=== PATIENT | male | born 1955 | race Asian ===

== ENCOUNTER 2016-08-12 17:23 | Inpatient (IN) | payer OTHER ==
--- NOTE | 2016-08-12 18:32 | PDOC ---
History of Present Illness - General Chief Complaint: Rash Stated Complaint: EAR PROBLEM/ R/O SHINGLES Time Seen by Provider: 08/12/16 18:30 History Source: Patient Exam Limitations: No Limitations - History of Present Illness Initial Comments: 08/12/16 22:43 61-year-old male with history of hypercholesterolemia presents to the ER with worsening right-sided facial rash that began around the right ear and now has extended to the right infraorbital area. Rash is associated with pruritus and pain, was initially vesicular and has now become encrusted. Patient also complaining of right radicular pain and decreased hearing. Patient denies headache/fever/chills. Patient was seen by his primary care physician and prescribed Valtrex which the patient has been taking. Patient was referred to the ER further evaluation and treatment. REVIEW OF SYSTEMS CONSTITUTIONAL: No fever, no chills, no fatigue EYES: No visual changes ENT: r ear ear pain, no sore throat CARDIOVASCULAR: No chest pain, no palpitations RESPIRATORY: No cough, no SOB GI: No abdominal pain, no nausea, no vomiting, no constipation, no diarrhea GENITOURINARY: No dysuria, no frequency, no hematuria MUSKULOSKELETAL: No backpain, no joint pain, no myalgias SKIN: r facial rash NEURO: No headache EXAMINATION CONSTITUTIONAL: Well-appearing; well-nourished; in no apparent distress HEAD: Normocephalic; atraumatic EYES: PERRL; EOM intact ENMT: + Numerous excoriated lesions to the V1 distribution on the right side extending from the preauricular area to the right infraorbital area with several small vesicles. There is no ocular involvement and there are no dendritic lesions to the right cornea. Visual acuity is intact.; normal oropharynx NECK: Supple; non-tender; no cervical lymphadenopathy CARD: Normal S1, S2; no murmurs, rubs, or gallops RESP: Normal chest excursion with respiration; breath sounds clear and equal bilaterally; no wheezes, rhonchi, or rales ABD: Soft, non-distended; non-tender; no palpable organomegaly, no palpable hernias EXT: Normal ROM in all four extremities; non-tender to palpation; distal pulses intact SKIN: Warm, dry, no rash NEURO: No focal neurological deficiencies. Past History - Past Medical History Allergies/Adverse Reactions: Allergies Allergy/AdvReac Type Severity Reaction Status Date / Time Penicillins Allergy Verified 08/12/16 17:28 shrimp Allergy Uncoded 08/12/16 17:28 Home Medications: Ambulatory Orders Lisinopril [Prinivil -] 40 mg PO DAILY 02/13/14 Naproxen [Naprosyn] 500 mg PO BID PRN #20 tablet 02/13/14 Simvastatin [Zocor -] 5 mg PO HS 02/13/14 Tamsulosin HCl 0.4 mg PO DAILY #7 cap.er.24h 02/13/14 HTN: Yes - Surgical History Neurologic Surgery: Yes (back) - Psycho/Social/Smoking Cessation Hx Anxiety: No Suicidal Ideation: No Smoking History: Never smoked Have you smoked in the past 12 months: Yes Number of Cigarettes Smoked Daily: 1 Cigars Per Day: 0 Information on smoking cessation initiated: No Hx Alcohol Use: No Drug/Substance Use Hx: No Substance Use Type: None *Physical Exam - Vital Signs Last Vital Signs Temp Pulse Resp BP Pulse Ox 98.1 F 75 17 145/84 100 08/12/16 17:26 08/12/16 17:26 08/12/16 17:26 08/12/16 17:26 08/12/16 17:26 ED Treatment Course - LABORATORY CBC & Chemistry Diagram: 08/12/16 20:20 08/12/16 20:20 Medical Decision Making - Medical Decision Making 08/12/16 22:45 Patient is a 61-year-old male with history of hyperlipidemia who presents to the ER with worsening herpes zoster infection in the right C1 distribution that is increasing despite the Valtrex therapy. Patient has most likely superimposed impetigo. Will administer IV acyclovir and will cover for gram-positive cellulitis. Will admit. *DC/Admit/Observation/Transfer Diagnosis at time of Disposition: Herpes zoster Qualifiers: Herpes zoster complications: unspecified herpes zoster complication Qualified Code(s): B02.8 - Zoster with other complications - Discharge Dispostion Admit: Yes - Referrals Referrals: Tobin Wild MD [Primary Care Provider] -
[2016-08-12] MEDS ORDERED: VANCOMYCIN 1,250 MG in DEXTROSE 5%-WATER - 250 ML IVPB ONE ×2 (18:36→20:00)
[2016-08-12] MEDS ORDERED: ACYCLOVIR INJECTION 900 MG in DEXTROSE 5%-WATER - 100 ML IVPB ONE (18:37)
[2016-08-12 20:26] LABS: EOSINOPHIL 4.1 % (0-4.5); MCH 30.5 pg (25.7-33.7); MCHC 34.5 g/dl (32.0-35.9); MEAN CELL VOLUME 88.3 fl (80-96); MEAN PLT VOLUME 8.7 fl (7.5-11.1); NEUTROPHILS 49.1 % (42.8-82.8); PLATELET COUNT 168 K/MM3 (134-434); RDW 13.9 % (11.9-15.9); WHITE BLOOD COUNT 6.2 K/mm3 (4.0-10.0)
[2016-08-12 21:02] LABS: ANION GAP 8 (8-16); BILIRUBIN,TOTAL 0.6 mg/dL (0.2-1.0); CALCIUM 8.8 mg/dL (8.5-10.1); CO2 28 mmol/L (21-32); CREATININE 0.8 mg/dL (0.7-1.3); GLUCOSE,RANDOM 134 mg/dL (74-106); SGOT/AST 29 U/L (15-37); SGPT/ALT 48 U/L (12-78); TOT PROT 6.6 g/dl (6.4-8.2)
[2016-08-12 21:03] LABS: ALK PHOS 65 U/L (45-117)
[2016-08-12] MEDS ORDERED: NAPROXEN 500 MG TABLET (FP) PO PRN (22:15)
[2016-08-12] MEDS ORDERED: OXYCODONE/APAP 5/325MG COMBO TABLET PO PRN (22:16)
[2016-08-12] MEDS ORDERED: oxyCODONE HCL 5 MG TABLET PO PRN (22:26)
[2016-08-12] MEDS ORDERED: ACETAMINOPHEN 325 MG TABLET (FP) PO PRN (22:26)
[2016-08-12] MEDS ORDERED: NAPROXEN 500 MG TABLET (FP) ONE (23:42)
[2016-08-13] MEDS: ACYCLOVIR INJECTION 900 MG in DEXTROSE 5%-WATER - 250 ML IVPB SCH ×3 (03:50→18:23)
[2016-08-13 09:48] VITALS: BMI 27.9
[2016-08-13] MEDS: LISINOPRIL 20 MG TABLET (FP) PO SCH (10:16)
[2016-08-13] MEDS: HEPARIN NA (PORCINE) 5,000 UNITS/ML 1ML VIAL SQ SCH ×2 (10:16→21:05)
[2016-08-13] MEDS: TAMSULOSIN HCL 0.4 MG CAP.ER.24H (FP) PO SCH (10:17)
--- NOTE | 2016-08-13 12:16 | PN ---
Progress Note (short form) - Note Progress Note: ID Consult dictated Probable resolving Herpes Zoster V3 distribution Possible bacterial secondary infection Obtain viral c/s Dermatology consult IV ACV / cefazolin If stable, D/C home am on Valtrex 1gm po tid x7d + keflex 500mg po bid x7d
[2016-08-13] MEDS: CEFAZOLIN (PRE-DOCKED) 50 ML IVPB SCH ×2 (12:49→17:52)
--- NOTE | 2016-08-13 13:49 | CONS ---
DATE OF CONSULTATION: HISTORY: The patient is a 61-year-old male evaluated for suspected herpes zoster. The patient reports that approximately 1 week ago he had developed a rash in the right preauricular area. It was initially described as vesicular in nature. He was seen as an outpatient and was prescribed a topical steroid cream as well as Valtrex. Despite taking 5 days of Valtrex, he reports there was no clinical improvement. He complained of pruritus at the site but no pain. A vesicular lesion subsequently became more encrusted. He denies any associated fever or chills. He has had no hearing deficit or change in his visual acuity. The patient was born in [place]. He is unsure whether or not he had varicella as a child. PAST MEDICAL HISTORY: Positive for hyperlipidemia, nephrolithiasis. PAST SURGICAL HISTORY: Status post back surgery. ALLERGIES: PENICILLIN. The nature of this allergy not known. MEDICATIONS: Prinivil, Naproxen, Zocor, Flomax. SOCIAL HISTORY: Originally from [place]. Has been living in the [place] for the past 30 years. Denies any ill contacts. SYSTEMS REVIEW: Neurologic: No loss of consciousness, seizure activity, focal weakness. Cardiac: Negative chest pain or palpitations. Respiratory: Negative for cough or sputum production. Gastrointestinal: Negative vomiting or diarrhea. Genitourinary: Negative for urinary tract infection. LABORATORY DATA: White count 6.2, hematocrit 36.1, platelet count 168, BUN 17, creatinine 0.8. Liver enzymes normal. PHYSICAL EXAMINATION: General: He is awake and alert. He is not acutely toxic appearing. Vital Signs: Temperature 97.7, blood pressure 141/89, pulse 64 and regular, respirations 18 per minute. HEENT: Sclerae anicteric. Examination of the face, there is what appears to be crusted, vesicular rash present in the right preauricular area. There is slight swelling and erythema extending to the right infraorbital area. There is no involvement of the ear canal. No vesicular lesions are noted in the external auditory canal or on the tip of the nose. There is no evidence of conjunctivitis. His visual acuity is intact. Extraocular muscles are intact. Neck: Supple with no palpable nodes. Heart: Sounds S1, S2. Lungs: Clear. Abdomen: Soft and nontender. Extremities: Negative for edema. IMPRESSION: 1. Probable resolving herpes zoster V3 distribution. 2. Possible bacterial secondary infection. We will obtain viral culture. Dermatology consultation. IV acyclovir and cefazolin. If stable, may discontinue home in a.m. on Valtrex 1 g p.o. t.i.d. for an additional 7 days as well as Keflex 500 mg b.i.d. for an additional 7 days. Thank you for the kind referral. BRENDA DA SILVA M.D. [id number]
--- NOTE | 2016-08-13 14:51 | HP ---
Admitting History and Physical - Primary Care Physician PCP: Tobin Wild - Admission Chief Complaint: right temporal rash History of Present Illness: 61-year-old male with history of hypercholesterolemia presents to the ER with worsening right-sided facial rash that began around the right ear 1 week ago and now has extended to the right infraorbital area. Rash is associated with pruritus and pain, was initially vesicular and has now become encrusted. Patient also complaining of right radicular pain and decreased hearing. Patient denies headache/fever/chills. Patient was seen by his primary care physician and prescribed Valtrex 500 mg po TID which the patient has been taking, to which rash has shown mild improvement. History Source: Patient - Past Medical History Cardiovascular: Yes: HTN, Hyperlipdemia Renal/: Yes: BPH - Smoking History Smoking history: Current some day smoker Have you smoked in the past 12 months: Yes Aproximately how many cigarettes per day: 1 - Alcohol/Substance Use Hx Alcohol Use: No Home Medications - Allergies Allergies/Adverse Reactions: Allergies Allergy/AdvReac Type Severity Reaction Status Date / Time Penicillins Allergy Verified 08/12/16 17:28 shrimp Allergy Uncoded 08/12/16 17:28 - Home Medications Home Medications: Ambulatory Orders Lisinopril [Prinivil -] 40 mg PO DAILY 02/13/14 Naproxen [Naprosyn] 500 mg PO BID PRN #20 tablet 02/13/14 Simvastatin [Zocor -] 5 mg PO HS 02/13/14 Tamsulosin HCl 0.4 mg PO DAILY #7 cap.er.24h 02/13/14 Review of Systems - Review of Systems Constitutional: reports: No Symptoms Eyes: reports: No Symptoms HENT: reports: Ear Pain Neck: reports: No Symptoms Cardiovascular: reports: No Symptoms Respiratory: reports: No Symptoms Gastrointestinal: reports: No Symptoms Genitourinary: reports: No Symptoms Breasts: reports: No Symptoms Reported Musculoskeletal: reports: No Symptoms Integumentary: reports: Pruritis, Rash (right temporal region) Neurological: reports: No Symptoms Endocrine: reports: No Symptoms Hematology/Lymphatic: reports: No Symptoms Psychiatric: reports: No Symptoms Pain Intensity: 2 Physical Examination Vital Signs: Vital Signs Temperature 97.7 F 08/13/16 09:13 Pulse Rate 64 08/13/16 09:13 Respiratory Rate 18 08/13/16 10:56 Blood Pressure 141/89 08/13/16 09:13 O2 Sat by Pulse Oximetry (%) 98 08/13/16 10:50 Constitutional: Yes: Well Nourished, No Distress, Calm Cardiovascular: Yes: Regular Rate and Rhythm Respiratory: Yes: Regular Gastrointestinal: Yes: Normal Bowel Sounds Musculoskeletal: Yes: WNL Extremities: Yes: WNL Edema: No Peripheral Pulses WNL: Yes Integumentary: Yes: Rash (encrusted- right temporal region) Neurological: Yes: Alert, Oriented Psychiatric: Yes: Alert, Oriented Problem List - Problems (1) Herpes zoster Assessment/Plan: -viral culture to be done -IV acyclovir q8 -iv abx in case of impetigo -ID consult -Pain management Code(s): B02.9 - ZOSTER WITHOUT COMPLICATIONS Qualifiers: Herpes zoster complications: unspecified herpes zoster complication Qualified Code(s): B02.8 - Zoster with other complications Assessment/Plan -viral culture to be done -IV acyclovir q8 -iv abx in case of impetigo -ID consult -Pain management -Dermatology consult
--- NOTE | 2016-08-13 17:09 | EKG ---
Test Reason : Blood Pressure : / mmHG Vent. Rate : 062 BPM Atrial Rate : 062 BPM P-R Int : 166 ms QRS Dur : 092 ms QT Int : 410 ms P-R-T Axes : -04 038 021 degrees QTc Int : 416 ms NORMAL SINUS RHYTHM EARLY REPOLARIZATION NORMAL ECG WHEN COMPARED WITH ECG OF 13-FEB-2014 11:25, NO SIGNIFICANT CHANGE WAS FOUND Confirmed by MD FELICITAS, ALEKSANDR ([id number]) on 08/13/2016 5:08:51 PM Referred By: Confirmed By:ALEKSANDR POLK MD
[2016-08-13] MEDS ORDERED: PATIENT'S OWN MEDICATION (NON-FORMULARY) (Simvastatin 5 MG) PO SCH (22:00)
[2016-08-14] MEDS: CEFAZOLIN (PRE-DOCKED) 50 ML IVPB SCH ×2 (01:03→09:55)
[2016-08-14] MEDS: ACYCLOVIR INJECTION 900 MG in DEXTROSE 5%-WATER - 250 ML IVPB SCH ×2 (01:41→11:27)
[2016-08-14] MEDS ORDERED: diphenhydrAMINE HCL 25 MG CAPSULE (FP) PO ONE (02:13)
[2016-08-14] MEDS: TAMSULOSIN HCL 0.4 MG CAP.ER.24H (FP) PO SCH (09:16)
[2016-08-14] MEDS: HEPARIN NA (PORCINE) 5,000 UNITS/ML 1ML VIAL SQ SCH (09:55)
[2016-08-14] MEDS: LISINOPRIL 20 MG TABLET (FP) PO SCH (09:55)
[2016-08-14 09:59] VITALS: BP 128/83; PULSE 71; TEMP 98.2
[2016-08-14] MEDS ORDERED: HYDROCORTISONE 2.5% LOTION - 1 BOTTLE TP PRN (10:13)
--- NOTE | 2016-08-14 10:13 | DS ---
Physical Examination Vital Signs: Vital Signs Temperature 98.2 F 08/14/16 09:58 Pulse Rate 71 08/14/16 09:58 Respiratory Rate 18 08/14/16 09:58 Blood Pressure 128/83 08/14/16 09:58 O2 Sat by Pulse Oximetry (%) 97 08/13/16 19:45 Cardiovascular: Yes: Regular Rate and Rhythm Respiratory: Yes: Regular, CTA Bilaterally Integumentary: Yes: Other (dry blisters erythema of rt temperol area) Discharge Summary Reason For Visit: HERPES ZOSTER Current Active Problems Herpes zoster (Acute) Hospital Course: 61-year-old male with history of hypercholesterolemia presents to the ER with worsening right-sided facial rash that began around the right ear 1 week ago and now has extended to the right infraorbital area. Rash is associated with pruritus and pain, was initially vesicular and has now become encrusted. Patient also complaining of right radicular pain and decreased hearing. Patient denies headache/fever/chills. Patient was seen by his primary care physician and prescribed Valtrex 500 mg po TID which the patient has been taking, to which rash has shown mild improvement. History Source: Patient - Past Medical History Cardiovascular: Yes: HTN, Hyperlipdemia Renal/: Yes: BPH - Problems (1) Herpes zoster Assessment/Plan: -viral culture to be done -IV acyclovir q8--to po vltrex -iv abx in case of impetigo--to keflex -ID consult noted Code(s): B02.9 - ZOSTER WITHOUT COMPLICATIONS Qualifiers: Herpes zoster complications: unspecified herpes zoster complication Qualified Code(s): B02.8 - Zoster with other complications Condition: Improved - Instructions Referrals: Tobin Wild MD [Primary Care Provider] - 1 Week Disposition: HOME - Home Medications Comprehensive Discharge Medication List: Ambulatory Orders Lisinopril [Prinivil -] 40 mg PO DAILY 02/13/14 Naproxen [Naprosyn -] 500 mg PO BID PRN #20 tablet 02/13/14 Simvastatin [Zocor -] 5 mg PO HS 02/13/14 Tamsulosin HCl 0.4 mg PO DAILY #7 cap.er.24h 02/13/14 Cephalexin Monohydrate [Keflex -] 500 mg PO BID #14 capsule 08/14/16 Hydrocortisone 2.5% Lotion [Hytone 2.5% Lotion -] 1 applic TP BID #1 bottle 03/02 Valacyclovir HCl [Valtrex -] 1,000 mg PO TID #21 tablet 08/14/16
== END 2016-08-14 13:39 | disposition home or self-care (01) | DRG 723 ==
LOC: JERFT 17:23 → JER 17:23 → JERBED 22:42 → UNDOADMIN 23:13 → J7W 08-13 09:10
PROVIDERS: ADMIT Family Medicine; ATTEND Family Medicine
DX: B02.8 Zoster with other complications (principal); I10 Essential (primary) hypertension; E78.5 Hyperlipidemia, unspecified; N40.0 Benign prostatic hyperplasia without lower urinary tract symptoms; Z72.0 Tobacco use
CPT/HCPCS: 36415; 71020-TC; 80053; 85025; 87252; 93005; 93010; 99283-25; J1644

== ENCOUNTER 2017-02-20 22:13 | Observation (INO) | payer OTHER ==
[2017-02-20] MEDS ORDERED: morphine CARPU-JECT 4 MG/1 ML DISP.SYRIN IVPUSH ONE ×2 (22:28→23:27)
[2017-02-20] MEDS ORDERED: SODIUM CHLORIDE 1,000 ML IV STA (22:28)
--- NOTE | 2017-02-20 22:28 | PDOC ---
Attending Attestation - Resident Resident Name: Deandre Santiago - ED Attending Attestation I have performed the following: I have examined & evaluated the patient, The case was reviewed & discussed with the resident, I agree w/resident's findings & plan, Exceptions are as noted - HPI HPI: 02/21/17 00:22 61 yo male dev left abd pain at 8pm - Physicial Exam PE: 02/21/17 00:22 wnwd 61 yo male p/w left sided abd pain headncat neck supple cvs [id number] Abdomen soft, no guarding, left upper and left mid abdominal pain to palpation. Extremities full range of motion, no deformity. Skin warm and dry. Neuro alert and oriented 3 - Medical Decision Making 02/21/17 00:33 ct scan revealed 7 mm stone and hydronephrosis
[2017-02-20] MEDS ORDERED: KETOROLAC TROMETHAMINE 30 MG/1 ML VIAL IVPUSH ONE (22:29)
[2017-02-20] MEDS ORDERED: ONDANSETRON 4 MG/2 ML VIAL ONE (22:31)
[2017-02-20] MEDS ORDERED: morphine CARPU-JECT 10 MG/1 ML DISP.SYRIN ONE ×2 (22:31→23:31)
[2017-02-20] MEDS ORDERED: KETOROLAC TROMETHAMINE 30 MG/1 ML VIAL ONE (22:31)
[2017-02-20] MEDS ORDERED: ONDANSETRON 4 MG/2 ML VIAL IVPUSH ONE (22:38)
--- NOTE | 2017-02-20 22:57 | PDOC ---
History of Present Illness - General Chief Complaint: Pain, Acute Stated Complaint: ABDOMINAL PAIN Time Seen by Provider: 02/20/17 22:17 History Source: Patient Exam Limitations: No Limitations - History of Present Illness Initial Comments: 02/20/17 22:51 Patient is a 61M with history of kidney stones, HTN and HLD is here today via EMS with sudden onset left sided abdominal pain. He states that he was on the couch with his kids when is paid suddenly onset. He describes the pain as similar to his prior episode of kidney stones 3 years ago. He endorses associated nausea with one episode of vomiting. He denies dysuria and blood in urine. Last bowel movement was today. Denies history of abdominal surgery. Past History - Past Medical History Allergies/Adverse Reactions: Allergies Allergy/AdvReac Type Severity Reaction Status Date / Time Penicillins Allergy Verified 02/20/17 22:16 shrimp Allergy Uncoded 02/20/17 22:16 Home Medications: Ambulatory Orders Lisinopril [Prinivil -] 40 mg PO DAILY 02/13/14 Naproxen [Naprosyn -] 500 mg PO BID PRN #20 tablet 02/13/14 Simvastatin [Zocor -] 5 mg PO HS 02/13/14 Tamsulosin HCl 0.4 mg PO DAILY #7 cap.er.24h 02/13/14 Cephalexin Monohydrate [Keflex -] 500 mg PO BID #14 capsule 08/14/16 Hydrocortisone 2.5% Lotion [Hytone 2.5% Lotion -] 1 applic TP BID #1 bottle 03/02 Valacyclovir HCl [Valtrex -] 1,000 mg PO TID #21 tablet 08/14/16 Anemia: No Asthma: No Cancer: No Cardiac Disorders: No CVA: No COPD: No CHF: No Dementia: No Diabetes: No GI Disorders: No Disorders: No HTN: Yes Hypercholesterolemia: No Liver Disease: No Seizures: No Thyroid Disease: No - Surgical History Abdominal Surgery: No Appendectomy: No Cardiac Surgery: No Cholecystectomy: No Lung Surgery: No Neurologic Surgery: Yes (back) Orthopedic Surgery: No - Suicide/Smoking/Psychosocial Hx Smoking History: Never smoked Have you smoked in the past 12 months: No Number of Cigarettes Smoked Daily: 1 Cigars Per Day: 0 Information on smoking cessation initiated: No 'Breaking Loose' booklet given: 08/13/16 Hx Alcohol Use: No Drug/Substance Use Hx: No Substance Use Type: None Hx Substance Use Treatment: No Review of Systems - Review of Systems Comments:: 02/20/17 22:56 GENERAL/CONSTITUTIONAL: No fever or chills. No weakness. HEAD, EYES, EARS, NOSE AND THROAT: No change in vision. No sore throat. CARDIOVASCULAR: No chest pain or shortness of breath RESPIRATORY: No cough, wheezing, or hemoptysis. GASTROINTESTINAL: Positive for nausea and vomiting. Negative for diarrhea or constipation. GENITOURINARY: No dysuria, frequency, or change in urination. MUSCULOSKELETAL: No joint or muscle swelling or pain. No neck or back pain. SKIN: No rash NEUROLOGIC: No headache, vertigo, loss of consciousness, or change in strength/ sensation. ALLERGIC/IMMUNOLOGIC: No hives or skin allergy. *Physical Exam - Vital Signs Last Vital Signs Temp Pulse Resp BP Pulse Ox 97.0 F L 79 20 161/93 99 02/20/17 22:17 02/20/17 22:17 02/20/17 22:17 02/20/17 22:17 02/20/17 22:17 - Physical Exam Comments: 02/20/17 22:57 GENERAL: Awake, alert, and fully oriented, writhing in pain HEAD: No signs of trauma, normocephalic, atraumatic EYES: PERRLA, EOMI, sclera anicteric, conjunctiva clear ENT: Auricles normal inspection, hearing grossly normal, nares patent, oropharynx clear without exudates. Moist mucosa NECK: Normal ROM, supple, no lymphadenopathy, JVD, or masses LUNGS: No distress, speaks full sentences, clear to auscultation bilaterally HEART: Regular rate and rhythm, normal S1 and S2, no murmurs, rubs or gallops, peripheral pulses normal and equal bilaterally. ABDOMEN: Soft, nontender, pain not worsened with palpation, no cva tenderness, normoactive bowel sounds. No guarding, no rebound. No masses EXTREMITIES: Normal inspection, Normal range of motion, no edema. No clubbing or cyanosis. NEUROLOGICAL: Cranial nerves II through XII grossly intact. Normal speech, no focal sensorimotor deficits SKIN: Warm, Dry, normal turgor, no rashes or lesions noted. ED Treatment Course - LABORATORY CBC & Chemistry Diagram: 02/20/17 22:47 02/20/17 22:47 - RADIOLOGY Radiology Studies Ordered: Category Date Time Status SPIRAL- RENAL-STONE CT [CT] Stat CT Scan 02/20/17 22:29 Ordered - Medications Given in the ED: ED Medications Discontinued Medications Generic Name Dose Route Start Last Admin Trade Name Cj PRN Reason Stop Dose Admin Ketorolac Tromethamine 30 mg 02/20/17 22:29 02/20/17 22:39 Toradol Injection - IVPUSH 02/20/17 22:30 30 mg ONCE ONE Administration Morphine Sulfate 4 mg 02/20/17 22:28 02/20/17 22:39 Morphine Injection - IVPUSH 02/20/17 22:29 4 mg ONCE ONE Administration Ondansetron HCl 4 mg 02/20/17 22:38 02/20/17 22:39 Zofran Injection IVPUSH 02/20/17 22:39 4 mg ONCE ONE Administration Medical Decision Making - Medical Decision Making 02/20/17 22:58 61M with history of htn, hld and kidney stones here today with abdominal pain. Vital signs stable and normal. DDx is heavily weighted towards kidney stones, but ddx includes, but is not limited to: UTI, pancreatitis. Vomited once. Will treat with fluids, toradol, morphine, zofran. Will evaluate with cbc, cmp, lipase, ua, spiral ct. 02/20/17 23:49 Laboratory Tests 02/20/17 02/20/17 22:47 22:47 WBC 7.6 Hgb 13.8 D Hct 39.6 Plt Count 199 BUN 15 Creatinine 0.9 Creat Clearance w eGFR > 60 Lipase 105 CBC normal. CMP normal, lipase negative. UA pending. Patient given 2nd round of morphine for recurrence of pain. Signed out to Dr Dahl. *DC/Admit/Observation/Transfer Diagnosis at time of Disposition: Abdominal pain - Referrals Referrals: Tobin Wild MD [Primary Care Provider] - - Patient Instructions - Post Discharge Activity
[2017-02-20 23:28] LABS: ALBUMIN 4.2 g/dl (3.4-5.0); ALK PHOS 80 U/L (45-117); ANION GAP 12 (8-16); BASO % 0.6 % (0-2.0); BILIRUBIN,TOTAL 0.5 mg/dL (0.2-1.0); BLOOD UREA NITROGEN 15 mg/dL (7-18); CALCIUM 9.3 mg/dL (8.5-10.1); CHLORIDE 105 mmol/L (98-107); CO2 25 mmol/L (21-32); CREATININE 0.9 mg/dL (0.7-1.3); EOS % 2.2 % (0-4.5); GLUCOSE,RANDOM 127 mg/dL (74-106); HEMATOCRIT 39.6 % (35.4-49); HEMOGLOBIN 13.8 GM/dL (11.7-16.9); LIPASE 105 U/L (73-393); LYMPH % 26.1 % (8-40); MCH 30.5 pg (25.7-33.7); MCHC 34.8 g/dl (32.0-35.9); MEAN CELL VOLUME 87.8 fl (80-96); MEAN PLT VOLUME 8.9 fl (7.5-11.1); MONO % 6.5 % (3.8-10.2); NEUT % 64.6 % (42.8-82.8); PLATELET COUNT 199 K/MM3 (134-434); POTASSIUM 3.7 mmol/L (3.5-5.1); RBC 4.51 M/mm3 (4.00-5.60); RDW 13.5 % (11.9-15.9); SGOT/AST 22 U/L (15-37); SGPT/ALT 40 U/L (12-78); SODIUM 142 mmol/L (136-145); WHITE BLOOD COUNT 7.6 K/mm3 (4.0-10.0)
--- NOTE | 2017-02-20 23:39 | PDOC ---
*Physical Exam - Vital Signs Last Vital Signs Temp Pulse Resp BP Pulse Ox 97.0 F L 79 20 161/93 99 02/20/17 22:17 02/20/17 22:17 02/20/17 22:17 02/20/17 22:17 02/20/17 22:17 ED Treatment Course - LABORATORY CBC & Chemistry Diagram: 02/20/17 22:47 02/20/17 22:47 - ADDITIONAL ORDERS Additional order review: Laboratory Results 02/20/17 22:47 Sodium 142 Potassium 3.7 Chloride 105 Carbon Dioxide 25 Anion Gap 12 BUN 15 Creatinine 0.9 Creat Clearance w eGFR > 60 Random Glucose 127 H Calcium 9.3 Total Bilirubin 0.5 AST 22 D ALT 40 Alkaline Phosphatase 80 D Total Protein 7.0 Albumin 4.2 Lipase 105 02/20/17 22:47 RBC 4.51 MCV 87.8 MCHC 34.8 RDW 13.5 MPV 8.9 Neutrophils % 64.6 D Lymphocytes % 26.1 D Monocytes % 6.5 Eosinophils % 2.2 Basophils % 0.6 - Medications Given in the ED: ED Medications Discontinued Medications Generic Name Dose Route Start Last Admin Trade Name Freq PRN Reason Stop Dose Admin Sodium Chloride 1,000 mls @ 1,000 mls/hr 02/20/17 22:28 02/20/17 22:39 Normal Saline - IV 02/20/17 23:27 1,000 mls/hr ASDIR STA Administration Ketorolac Tromethamine 30 mg 02/20/17 22:29 02/20/17 22:39 Toradol Injection - IVPUSH 02/20/17 22:30 30 mg ONCE ONE Administration Morphine Sulfate 4 mg 02/20/17 22:28 02/20/17 22:39 Morphine Injection - IVPUSH 02/20/17 22:29 4 mg ONCE ONE Administration Morphine Sulfate 4 mg 02/20/17 23:27 02/20/17 23:34 Morphine Injection - IVPUSH 02/20/17 23:28 4 mg ONCE ONE Administration Ondansetron HCl 4 mg 02/20/17 22:38 02/20/17 22:39 Zofran Injection IVPUSH 02/20/17 22:39 4 mg ONCE ONE Administration Medical Decision Making - Medical Decision Making 02/20/17 23:39 The patient is a 61M with a PMH of kidney stones, HTN and HLD who presents with pain similar to his previous kidney stones. Pending spiral CT and disposition based on findings. 02/21/17 00:32 CT shows L sided 7mm stone with mild hydronephrosis. Microblog sent to hospitalist for admission. 02/21/17 00:[address] Lemos for a med-surg bed. *DC/Admit/Observation/Transfer Diagnosis at time of Disposition: Kidney stone Abdominal pain Qualifiers: Abdominal location: unspecified location Qualified Code(s): R10.9 - Unspecified abdominal pain - Discharge Dispostion Condition at time of disposition: Stable Admit: Yes - Referrals Referrals: Tobin Wild MD [Primary Care Provider] - - Patient Instructions - Post Discharge Activity
[2017-02-20 23:46] LABS: URINE APPEARANCE SLCLOUDY; URINE BILIRUBIN NEGATIVE (NEGATIVE); URINE BLOOD 3+ (NEGATIVE); URINE COLOR YELLOW; URINE GLUCOSE (UA) NEGATIVE (NEGATIVE); URINE KETONE NEGATIVE (NEGATIVE); URINE LEUK ESTERASE NEGATIVE (NEGATIVE); URINE NITRITE NEGATIVE (NEGATIVE); URINE PROTEIN NEGATIVE (NEGATIVE); URINE UROBILINOGEN NEGATIVE mg/dL (0.2-1.0)
[2017-02-20 23:56] LABS: URINE MUCUS RARE
--- NOTE | 2017-02-21 01:16 | HP ---
CHIEF COMPLAINT: Abdominal Pain PCP: Dr. De La Cruz HISTORY OF PRESENT ILLNESS: 61 M with hx. of htn, hld, and back sx who presents with LLQ abdominal pain today. Notes that it started with numbess on tip of penis, which went away and then he had abdominal pain and associated vomiting( Non-Bloody) emesis X1. States he his pain went away in ED. No fevers, chills or dysuria. No Nausea or diarrhea. ER course was notable for: (1) CT ABD- 7mm L, UPJ stone, with moderate L. Coffeen (2) UA- Micosopic hematouria (3) Ketorlac/Morphine given for pain Recent Travel: NO PAST MEDICAL HISTORY: As Above PAST SURGICAL HISTORY: Back Sx Social History: Smoking:No Alcohol:No Drugs: No Family History: Negative as per Pt. Allergies Penicillins Allergy (Verified 02/20/17 22:16) shrimp Allergy (Uncoded 02/20/17 22:16) HOME MEDICATIONS: Home Medications Medication Instructions Recorded Lisinopril [Prinivil -] 40 mg PO DAILY 02/13/14 Naproxen [Naprosyn -] 500 mg PO BID PRN #20 tablet 02/13/14 Simvastatin [Zocor -] 5 mg PO HS 02/13/14 Tamsulosin HCl 0.4 mg PO DAILY #7 cap.er.24h 02/13/14 Cephalexin Monohydrate [Keflex -] 500 mg PO BID #14 capsule 08/14/16 Hydrocortisone 2.5% Lotion [Hytone 1 applic TP BID #1 bottle 08/14/16 2.5% Lotion -] Valacyclovir HCl [Valtrex -] 1,000 mg PO TID #21 tablet 08/14/16 REVIEW OF SYSTEMS CONSTITUTIONAL: Absent: fever, chills, diaphoresis, generalized weakness, malaise, loss of appetite, weight change HEENT: Absent: rhinorrhea, nasal congestion, throat pain, throat swelling, difficulty swallowing, mouth swelling, ear pain, eye pain, visual changes CARDIOVASCULAR: Absent: chest pain, syncope, palpitations, irregular heart rate, lightheadedness , peripheral edema RESPIRATORY: Absent: cough, shortness of breath, dyspnea with exertion, orthopnea, wheezing, stridor, hemoptysis GASTROINTESTINAL: + abdominal pain, NO abdominal distension, nausea, + vomiting, NO diarrhea, constipation, melena, hematochezia GENITOURINARY: Absent: dysuria, frequency, urgency, hesitancy, hematuria, flank pain, genital pain MUSCULOSKELETAL: Absent: myalgia, arthralgia, joint swelling, back pain, neck pain SKIN: Absent: rash, itching, pallor HEMATOLOGIC/IMMUNOLOGIC: Absent: easy bleeding, easy bruising, lymphadenopathy, frequent infections ENDOCRINE: Absent: unexplained weight gain, unexplained weight loss, heat intolerance, cold intolerance NEUROLOGIC: Absent: headache, focal weakness or paresthesias, dizziness, unsteady gait, seizure, mental status changes, bladder or bowel incontinence PSYCHIATRIC: Absent: anxiety, depression, suicidal or homicidal ideation, hallucinations. PHYSICAL EXAMINATION Vital Signs - 24 hr 02/20/17 22:17 Temperature 97.0 F L Pulse Rate 79 Respiratory 20 Rate Blood Pressure 161/93 O2 Sat by Pulse 99 Oximetry (%) GENERAL: Awake, alert, and fully oriented, in no acute distress. HEAD: Normal with no signs of trauma. EYES: Pupils equal, round and reactive to light, extraocular movements intact, sclera anicteric, conjunctiva clear. No lid lag. EARS, NOSE, THROAT: Ears normal, nares patent, oropharynx clear without exudates. Moist mucous membranes. NECK: Normal range of motion, supple without lymphadenopathy, JVD, or masses. LUNGS: Breath sounds equal, clear to auscultation bilaterally. No wheezes, and no crackles. No accessory muscle use. HEART: Regular rate and rhythm, normal S1 and S2 without murmur, rub or gallop. ABDOMEN: Soft, nontender, not distended, normoactive bowel sounds, no guarding, no rebound, no masses. No hepatomegaly or splenomegaly. MUSCULOSKELETAL: Normal range of motion at all joints. No bony deformities or tenderness. No CVA tenderness. UPPER EXTREMITIES: 2+ pulses, warm, well-perfused. No cyanosis. No clubbing. No peripheral edema. LOWER EXTREMITIES: 2+ pulses, warm, well-perfused. No calf tenderness. No peripheral edema. NEUROLOGICAL: Cranial nerves II-XII intact. Normal speech. PSYCHIATRIC: Cooperative. Good eye contact. Appropriate mood and affect. SKIN: Warm, dry, normal turgor, no rashes or lesions noted, normal capillary refill. Laboratory Results - last 24 hr 02/20/17 02/20/17 02/20/17 22:47 22:47 23:20 WBC 7.6 RBC 4.51 Hgb 13.8 D Hct 39.6 MCV 87.8 MCH 30.5 MCHC 34.8 RDW 13.5 Plt Count 199 MPV 8.9 Neutrophils % 64.6 D Lymphocytes % 26.1 D Monocytes % 6.5 Eosinophils % 2.2 Basophils % 0.6 Sodium 142 Potassium 3.7 Chloride 105 Carbon Dioxide 25 Anion Gap 12 BUN 15 Creatinine 0.9 Creat Clearance w eGFR > 60 Random Glucose 127 H Calcium 9.3 Total Bilirubin 0.5 AST 22 D ALT 40 Alkaline Phosphatase 80 D Total Protein 7.0 Albumin 4.2 Lipase 105 Urine Color Yellow Urine Appearance Slcloudy Urine pH 5.0 Ur Specific Media 1.018 Urine Protein Negative Urine Glucose (UA) Negative Urine Ketones Negative Urine Blood 3+ H Urine Nitrite Negative Urine Bilirubin Negative Urine Urobilinogen Negative Ur Leukocyte Esterase Negative Urine WBC (Auto) 2 Urine RBC (Auto) 105 Urine Mucus Rare ASSESSMENT/PLAN: 61 M with HTN, HLD and back sx who presents with abdominal pain being admitted for nephrolithiasis 1.) Nephrolithiasis with Moderate L. Coffeen - 7 mm stone - IVF - Strain Urine - Pain control - Uro. consulted - Flomax 2.) HTN - C/W home meds 3.) HLD - C/W Statin 4.) Dvt PPx - SCDS Place in Obs Visit type - Emergency Visit Emergency Visit: Yes ED Registration Date: 02/21/17 Care time: The patient presented to the Emergency Department on the above date and was hospitalized for further evaluation of their emergent condition. - New Patient This patient is new to me today: Yes Date on this admission: 02/21/17 - Critical Care Critical Care patient: No
[2017-02-21] MEDS ORDERED: TAMSULOSIN HCL 0.4 MG CAP.ER.24H (FP) ONE (01:35)
[2017-02-21] MEDS ORDERED: morphine CARPU-JECT 10 MG/1 ML DISP.SYRIN IVPUSH PRN ×3 (01:37→10:07)
[2017-02-21] MEDS: TAMSULOSIN HCL 0.4 MG CAP.ER.24H (FP) PO SCH ×2 (02:06→09:30)
[2017-02-21] MEDS: SODIUM CHLORIDE 1,000 ML IV SCH ×2 (02:06→08:38)
[2017-02-21] MEDS ORDERED: morphine CARPU-JECT 10 MG/1 ML DISP.SYRIN IVPUSH ONE ×3 (04:53→10:15)
[2017-02-21] MEDS ORDERED: morphine CARPU-JECT 10 MG/1 ML DISP.SYRIN ONE ×3 (05:12→09:44)
[2017-02-21 05:56] LABS: HEMATOCRIT 36.1 % (35.4-49); HEMOGLOBIN 12.5 GM/dL (11.7-16.9); MCH 30.5 pg (25.7-33.7); MCHC 34.5 g/dl (32.0-35.9); MEAN CELL VOLUME 88.5 fl (80-96); MEAN PLT VOLUME 7.7 fl (7.5-11.1); PLATELET COUNT 168 K/MM3 (134-434); RBC 4.08 M/mm3 (4.00-5.60); RDW 13.8 % (11.9-15.9); WHITE BLOOD COUNT 7.5 K/mm3 (4.0-10.0)
[2017-02-21 06:11] LABS: INR 1.07 (0.82-1.09); PROTHROMBIN TIME (PATIENT) 12.1 SEC (9.98-11.88)
[2017-02-21 06:13] LABS: ACTIVATED PTT 27.8 SECONDS (26.9-34.4)
[2017-02-21 06:33] LABS: ANION GAP 8 (8-16); BLOOD UREA NITROGEN 16 mg/dL (7-18); CALCIUM 7.9 mg/dL (8.5-10.1); CHLORIDE 108 mmol/L (98-107); CO2 26 mmol/L (21-32); CREATININE 0.8 mg/dL (0.7-1.3); GLUCOSE,RANDOM 138 mg/dL (74-106); POTASSIUM 3.8 mmol/L (3.5-5.1); SODIUM 142 mmol/L (136-145)
[2017-02-21] MEDS ORDERED: LISINOPRIL 20 MG TABLET (FP) PO SCH (10:00)
[2017-02-21] MEDS ORDERED: ONDANSETRON 4 MG/2 ML VIAL IVPUSH PRN (12:39)
[2017-02-21] MEDS ORDERED: PROMETHAZINE HCL 25 MG/1 ML VIAL IVPUSH PRN (12:39)
[2017-02-21] MEDS ORDERED: LACTATED RINGERS SOLUTION 1,000 ML IV SCH (12:45)
[2017-02-21] MEDS ORDERED: PROMETHAZINE HCL 25 MG/1 ML VIAL IVPB PRN (12:54)
--- NOTE | 2017-02-21 12:56 | CON.GU ---
Consult Consult Specialty:: Referred by:: Aminta Reason for Consultation:: L UPJ calculus - History of Present Illness Chief Complaint: L sided abd pain History of Present Illness: 61 yo m w hx HTN pres to ED c/o sudden onset sever LLQ abd pain assoc w N, V found to have 7 mm L UPJ calculus w mod L hydro. - History Source History Provided By: Patient Limitations to Obtaining History: No Limitations - Past Medical History ADMINISTRATIVE OFFICER: Yes: Dementia Cardio/Vascular: Yes: HTN, Hyperlipdemia Renal/: Yes: BPH - Alcohol/Substance Use Hx Alcohol Use: No - Smoking History Smoking history: Current some day smoker Have you smoked in the past 12 months: No Aproximately how many cigarettes per day: 1 Home Medications - Allergies Allergies/Adverse Reactions: Allergies Allergy/AdvReac Type Severity Reaction Status Date / Time Penicillins Allergy Verified 02/20/17 22:16 shrimp Allergy Uncoded 02/20/17 22:16 - Home Medications Home Medications: Ambulatory Orders Lisinopril [Prinivil -] 40 mg PO DAILY 02/13/14 Simvastatin [Zocor -] 5 mg PO HS 02/13/14 Review of Systems - Review of Systems Genitourinary: reports: Flank Pain Physical Exam- Vital Signs: Vital Signs Temperature 98.2 F 02/21/17 12:13 Pulse Rate 67 02/21/17 12:13 Respiratory Rate 18 02/21/17 12:13 Blood Pressure 148/87 02/21/17 12:13 O2 Sat by Pulse Oximetry (%) 99 02/21/17 08:05 Gastrointestinal: Yes: Soft, Tenderness Renal/: Yes: CVA Tenderness - Left Testicles: Yes: WNL Scrotum: Yes: WNL Penis: Yes: WNL Labs: CBC, BMP 02/21/17 05:46 02/21/17 05:46 Imaging - Results Cat Scan: Report Reviewed Problem List - Problems (1) Hydronephrosis Code(s): N13.30 - UNSPECIFIED HYDRONEPHROSIS Qualifiers: Hydronephrosis type: with renal calculous obstruction Qualified Code(s): N13.2 - Hydronephrosis with renal and ureteral calculous obstruction (2) Kidney stone Code(s): N20.0 - CALCULUS OF KIDNEY Assessment/Plan Imp: 7 mm L UPJ calculus, 4 mm L mid renal calculus, mod L hydronephrosis Plan: cysto L JJ stent insertion, f/u in my office to book ESWL L
[2017-02-21] MEDS ORDERED: MIDAZOLAM HCL 2 MG/2 ML SINGLE DOSE VIAL ONE (12:58)
[2017-02-21] MEDS ORDERED: PROPOFOL 20 ML ONE (12:58)
[2017-02-21] MEDS ORDERED: LIDOCAINE HCL/PF 2% SDV 5ML VIAL ONE (12:59)
--- NOTE | 2017-02-21 13:03 | OP ---
Operative Note - Note: Operative Date: 02/21/17 Pre-Operative Diagnosis: L UPJ calculus, L hydronephrosis Operation: cystoscopy L JJ stent insertion Post-Operative Diagnosis: Same as Pre-op Surgeon: Bhargav Vera Anesthesiologist/INVESTMENT MANAGER: Tres Salcedo Anesthesia: General, Local Estimated Blood Loss (mls): 0 Drains & Tubes with Location: 6 fr 26 cm L JJ Operative Report Dictated: Yes
[2017-02-21] MEDS ORDERED: LEVOFLOXACIN 500 MG IVPB 500 MG/100 ML BAG IVPB ONE (13:31)
[2017-02-21] MEDS ORDERED: DEXAMETHASONE SOD PHOSPHATE 4 MG/1 ML VIAL ONE (13:33)
[2017-02-21] MEDS ORDERED: LEVOFLOXACIN 500 MG PREMIX BAG IVPB ONE (13:33)
[2017-02-21] MEDS ORDERED: KETOROLAC TROMETHAMINE 30 MG/1 ML VIAL ONE (13:41)
[2017-02-21 14:04] VITALS: BMI 31.1
[2017-02-21 14:42] VITALS: TEMP 97.8
[2017-02-21 16:07] VITALS: PULSE 69
[2017-02-21 16:10] VITALS: BP 154/88
[2017-02-21] MEDS ORDERED: ATORVASTATIN CA 20 MG TABLET (FP) PO SCH (22:00)
--- NOTE | 2017-02-21 22:11 | OP ---
DATE OF OPERATION: 02/21/2017 PREOPERATIVE DIAGNOSES: Left ureteropelvic junction calculus, left hydronephrosis. POSTOPERATIVE DIAGNOSES: Left ureteropelvic junction calculus, left hydronephrosis. PROCEDURE: Cystoscopy, left double-J stent insertion. SURGEON: Bhargav Vera MD PLUMBING MECHANIC: None. ANESTHESIA: General via laryngeal mask. ANESTHESIOLOGIST: Marina Salcedo MD SPECIMENS: None. CULTURES: None. DRAINS: A 6-Belgian 26-cm left double-J stent. ESTIMATED BLOOD LOSS: None. COMPLICATIONS: None. DESCRIPTION OF PROCEDURE: Patient was brought into the operating room, placed on the operating table in the supine position. After administration of general anesthesia, intravenous antibiotics were administered, and sequential compression devices were placed. The patient was placed in dorsal lithotomy position. The perineum and genitals were prepped and draped in the usual sterile manner. The 22-Belgian cystoscope was inserted into the bladder under direct vision. Anterior urethra was normal. The prostatic urethra demonstrated an obstructive trilobar occlusion of the prostate. Bladder was entered and thoroughly inspected. There were no foreign bodies, tumors, stones, inflammation. Both ureteral orifices were in their usual location with clear efflux bilaterally. The left ureteral orifice was cannulated with a 0.038 guidewire, was advanced to the level of the left renal pelvis under fluoroscopic and direct visual guidance. The dual-lumen catheter was inserted. Retrograde pyelogram was done, demonstrated a 7-mm radiopaque left UPJ calculus and a second stone in the left mid-kidney. Contrast opacified the collecting system, demonstrated moderate hydronephrosis with the guidewire in good position. Now, a 6-Belgian 26-cm left double-J stent was inserted over the guidewire under direct visual and fluoroscopic guidance, leaving 1 coil in the renal pelvis and 1 coil in the bladder. The bladder was emptied. Cystoscope removed. Patient tolerated the procedure well, transferred to recovery room in stable condition. PLAN: Followup in the office, schedule ESWL left and then stent removal. Deborah [id number]
== END 2017-02-21 18:05 | disposition home or self-care (01) ==
LOC: JER 22:13 → JERBED 02-21 00:51 → INTOOBSV 02-21 00:51 → UNDOADMOB 02-21 00:51 → JERBED 02-21 01:17 → UNDODISIN 02-21 15:45
PROVIDERS: ADMIT Internal Medicine; ATTEND Family Medicine
PROC: 0T7D8DZ Dilation of Urethra with Intraluminal Device, Via Natural or Artificial Opening Endoscopic (ICD-10-PCS; principal; 2017-02-21 14:30)
DX: N13.2 Hydronephrosis with renal and ureteral calculous obstruction (principal); I10 Essential (primary) hypertension; E78.5 Hyperlipidemia, unspecified; Z87.442 Personal history of urinary calculi; Z88.0 Allergy status to penicillin; Z91.013 Allergy to seafood
CPT/HCPCS: 36415; 74176; 76000-TC; 80048; 80053; 81003; 81015; 83690; 85025; 85027; 85610; 85730; 86850; 86900; 86901; 94760; 99284-25; G0378

== ENCOUNTER 2017-03-15 06:22 | Day surgery (SDC) | payer OTHER ==
[2017-03-14 10:29] VITALS: BMI 26.8
--- NOTE | 2017-03-15 07:45 | HP ---
History & Physical Update - History History: No Change - Physical Physical: No Change - Assessment Assessment: No Change - Plan Plan: No Change
--- NOTE | 2017-03-15 07:47 | OP ---
Operative Note - Note: Operative Date: 03/15/17 Pre-Operative Diagnosis: L renal calculus Operation: ESWL L Findings: 7 mm radiopaque L renal calculus Post-Operative Diagnosis: Same as Pre-op Surgeon: Bhargav Vera Anesthesiologist/SHIP DESIGN TEACHER: Margi Tolbert MD Anesthesia: Fractional Estimated Blood Loss (mls): 0 Operative Report Dictated: Yes
[2017-03-15] MEDS ORDERED: MIDAZOLAM HCL 2 MG/2 ML SINGLE DOSE VIAL ONE ×2 (08:11)
[2017-03-15] MEDS ORDERED: ONDANSETRON 4 MG/2 ML VIAL IVPUSH PRN (08:52)
[2017-03-15] MEDS ORDERED: oxyCODONE HCL 5 MG TABLET PO PRN (08:52)
[2017-03-15] MEDS ORDERED: LACTATED RINGERS SOLUTION 1,000 ML IV SCH (09:00)
--- NOTE | 2017-03-15 09:32 | OP ---
DATE OF OPERATION: 03/15/2017 PREOPERATIVE DIAGNOSIS: Left renal calculus. POSTOPERATIVE DIAGNOSIS: Left renal calculus. PROCEDURE: Extracorporeal shock wave lithotripsy, left renal calculus. SURGEON: Bhargav Gomes MD SUSTAINABLE DESIGN CONSULTANT: None. ANESTHESIA: IV sedation. ANESTHESIOLOGIST: Margi Tolbert MD SPECIMENS: None. CULTURES: None. DRAINS: None. ESTIMATED BLOOD LOSS: None. COMPLICATIONS: None. DESCRIPTION OF PROCEDURE: Patient was brought into the operating room, placed on the operating table in the supine position. After administration of intravenous sedation, patient was positioned over the treatment head, and under fluoroscopic guidance, 7-mm left renal calculus was identified, targeted, and delivered 2500 shocks at maximum kilovoltage with excellent fragmentation. He tolerated the procedure well, transferred to recovery room in stable condition. BHARGAV GOMES M.D. KATHARINE/[id number]
[2017-03-15 09:36] VITALS: TEMP 97.8
[2017-03-15 12:02] VITALS: BP 137/85; PULSE 74
== END 2017-03-15 12:02 | disposition home or self-care (01) ==
LOC: JASU-SURG 06:22
PROVIDERS: ATTEND Urology
PROC: 0TF4XZZ Fragmentation in Left Kidney Pelvis, External Approach (ICD-10-PCS; principal; 2017-03-15 08:00)
DX: N20.0 Calculus of kidney (principal)
CPT/HCPCS: 94760

== ENCOUNTER 2022-12-01 08:43 | Day surgery (SDC) | payer MEDICARE ==
[2022-11-29 12:31] VITALS: BMI 26.1
[2022-12-01] MEDS ORDERED: LIDOCAINE HCL/PF 2% SDV 5ML VIAL ONE (10:22)
[2022-12-01] MEDS ORDERED: PROPOFOL 20 ML ONE (10:23)
[2022-12-01] MEDS ORDERED: MIDAZOLAM HCL 2 MG/2 ML SINGLE DOSE VIAL ONE (10:23)
[2022-12-01] MEDS ORDERED: DEXAMETHASONE SOD PHOSPHATE 4 MG/1 ML VIAL ONE (10:45)
[2022-12-01] MEDS ORDERED: KETOROLAC TROMETHAMINE 30 MG/1 ML VIAL ONE (10:45)
[2022-12-01] MEDS ORDERED: ceFAZolin SODIUM 1 GM VIAL ONE (10:45)
[2022-12-01] MEDS ORDERED: ONDANSETRON 4 MG/2 ML VIAL ONE (10:45)
[2022-12-01] MEDS ORDERED: ONDANSETRON 4 MG/2 ML VIAL IVPUSH PRN (11:23)
[2022-12-01] MEDS ORDERED: oxyCODONE HCL 5 MG TABLET PO PRN ×2 (11:23)
[2022-12-01] MEDS ORDERED: PROMETHAZINE HCL 25 MG/1 ML VIAL IVPB PRN (11:23)
[2022-12-01] MEDS ORDERED: ACETAMINOPHEN 1000 MG/100 ML BAG IVPB ONE (11:24)
[2022-12-01] MEDS ORDERED: LACTATED RINGERS SOLUTION 1,000 ML IV SCH (11:30)
[2022-12-01 12:08] VITALS: RESP 16; TEMP 98.2
[2022-12-01 12:38] VITALS: BP 121/68; PULSE 68
== END 2022-12-01 12:36 | disposition home or self-care (01) ==
LOC: FASU 08:43
PROVIDERS: ATTEND Orthopaedic Surgery Hand Surgery
PROC: 0JBJ0ZX Excision of Right Hand Subcutaneous Tissue and Fascia, Open Approach, Diagnostic (ICD-10-PCS; 2022-12-01)
PROC: 0JBJ0ZZ Excision of Right Hand Subcutaneous Tissue and Fascia, Open Approach (ICD-10-PCS; principal; 2022-12-01 10:52)
DX: D21.11 Benign neoplasm of connective and other soft tissue of right upper limb, including shoulder (principal)
CPT/HCPCS: 82962; 88305-TC; 94760